=== PATIENT | male | born 1945 | race Caucasian/White ===

== ENCOUNTER 2016-09-19 11:12 | Emergency (ER) | payer OTHER ==
[2016-09-19 12:22] LABS: Basophils % (Auto) 0.9 % (0.0-1.8); Hemoglobin 12.6 gm/dl (11.8-15.2); Mean Corpuscular HGB Conc 33 % (32-34); Mean Corpuscular Hemoglobin 31 pg (28-32); Mean Corpuscular Volume 94 fl (84-94); Platelet Count 166 K/mm3 (140-440); Red Blood Count 4.02 M/mm3 (3.65-5.03); Red Cell Distribution Width 14.9 % (13.2-15.2); White Blood Count 7.4 K/mm3 (4.5-11.0)
[2016-09-19 12:36] LABS: Alanine Aminotransferase 44 units/L (7-56); Albumin 3.7 g/dL (3.9-5); Albumin/Globulin Ratio 0.9 %; Alkaline Phosphatase 278 units/L (35-129); Anion Gap 16 mmol/L; BUN/Creatinine Ratio 15.71; Bilirubin,Total 0.6 mg/dL (0.1-1.2); Blood Urea Nitrogen 11 mg/dL (9-20); Calcium 8.8 mg/dL (8.4-10.2); Carbon Dioxide 22 mmol/L (22-30); Chloride 101.8 mmol/L (98-107); Glucose 98 mg/dL (75-100); Lipase 20 units/L (13-60); Potassium 5.3 mmol/L (3.6-5.0); Sodium 134 mmol/L (137-145); Total Protein 7.8 g/dL (6.3-8.2)
--- NOTE | 2016-09-19 12:48 | Emergency Department Report ---
ED Abdominal Pain HPI - General Chief Complaint: Abdominal Pain Stated Complaint: FEVER/ABD PAIN Time Seen by Provider: 09/19/16 12:46 Source: patient Mode of arrival: Ambulatory Limitations: No Limitations - History of Present Illness Initial Comments: Patient presents to the emergency department for essentially a referral and another opinion. He said abdominal pain left upper quadrant of his abdomen for quite some time. Back in [place] he had a CT of his abdomen and an ultrasound performed. Had an MRI he states he states that none of these tests were positive for anything specific. He is status post cholecystectomy. He had the placement of the stent which was ultimately endoscopically removed. He cannot identify any gastric pathology on previous EGD. He's had this problem ongoing for really quite some time. He has a history of hypertension but states that he is not on an JOSEPH inhibitor. He states that he's had a long-term weight loss which continues. No one has found an etiology of his problem as of yet. He's had no recent acute pain and no signs of GI bleeding. He's had no recent fever or chills. MD Complaint: abdominal pain -: month(s), year(s) Location: [facility] Radiation: none Migration to: no migration Severity: moderate Quality: cramping Consistency: now resolved Improves With: nothing Worsens With: nothing Context: other Associated Symptoms: denies other symptoms - Related Data Previous Rx's Medication Instructions Recorded Last Taken Type Lansoprazole [Prevacid] 15 mg PO BID #60 cap 09/19/16 Unknown Rx traMADol [Ultram] 50 mg PO Q6HR PRN #10 tablet 09/19/16 Unknown Rx Allergies Allergy/AdvReac Type Severity Reaction Status Date / Time No Known Allergies Allergy Unverified 09/19/16 11:32 ED Review of Systems ROS: Stated complaint: FEVER/ABD PAIN Other details as noted in HPI Constitutional: denies: chills, fever Eyes: denies: eye pain, eye discharge, vision change ENT: denies: ear pain, throat pain Respiratory: denies: cough, shortness of breath, wheezing Cardiovascular: denies: chest pain, palpitations Endocrine: no symptoms reported Gastrointestinal: abdominal pain. denies: nausea, vomiting, diarrhea Genitourinary: denies: urgency, dysuria Musculoskeletal: denies: back pain, joint swelling, arthralgia Skin: denies: rash, lesions Neurological: denies: headache, weakness, paresthesias Psychiatric: denies: anxiety, depression Hematological/Lymphatic: denies: easy bleeding, easy bruising ED Past Medical Hx - Past Medical History Hx Hypertension: Yes - Surgical History Hx Cholecystectomy: Yes - Social History Smoking Status: Current Every Day Smoker Substance Use Type: None - Medications Home Medications: Home Medications Medication Instructions Recorded Confirmed Last Taken Type Lansoprazole [Prevacid] 15 mg PO BID #60 cap 09/19/16 Unknown Rx traMADol [Ultram] 50 mg PO Q6HR PRN #10 tablet 09/19/16 Unknown Rx ED Physical Exam - General Limitations: No Limitations General appearance: alert, in no apparent distress - Head Head exam: Present: atraumatic, normocephalic - Eye Eye exam: Present: normal appearance. Absent: scleral icterus - ENT ENT exam: Present: mucous membranes moist - Neck Neck exam: Present: normal inspection - Respiratory Respiratory exam: Present: normal lung sounds bilaterally. Absent: respiratory distress - Cardiovascular Cardiovascular Exam: Present: regular rate, normal rhythm. Absent: systolic murmur, diastolic murmur, rubs, gallop - GI/Abdominal GI/Abdominal exam: Present: soft, normal bowel sounds. Absent: distended, tenderness, guarding, rebound, rigid - Rectal Rectal exam: Present: deferred - Extremities Exam Extremities exam: Present: normal inspection - Back Exam Back exam: Present: normal inspection - Neurological Exam Neurological exam: Present: alert, oriented X3, CN II-XII intact. Absent: motor sensory deficit - Psychiatric Psychiatric exam: Present: normal affect, normal mood - Skin Skin exam: Present: warm, dry, intact, normal color. Absent: rash ED Course Vital Signs 09/19/16 09/19/16 09/19/16 11:32 12:41 12:47 Temperature 97.7 F 97.5 F L Pulse Rate 58 L 53 L 60 Respiratory 20 12 16 Rate Blood Pressure 137/52 Blood Pressure 150/63 [Left] O2 Sat by Pulse 100 100 100 Oximetry 09/19/16 09/19/16 09/19/16 12:59 13:00 13:30 Temperature Pulse Rate 61 59 L Respiratory 18 13 Rate Blood Pressure 143/52 119/50 Blood Pressure 143/52 [Left] O2 Sat by Pulse 100 100 100 Oximetry 09/19/16 13:45 Temperature Pulse Rate 59 L Respiratory 18 Rate Blood Pressure Blood Pressure 119/50 [Left] O2 Sat by Pulse 100 Oximetry - Reevaluation(s) Reevaluation #1: Patient remains asymptomatic here. He is requesting a GI referral. I will be given. He will be given 15 g of Kayexalate. A specimen was not hemolyzed. He is instructed that his potassium level will need to be repeated. I will also refer him to a primary care provider. He'll be placed on lansoprazole and given Ultram for his intermittent pain. 09/19/16 15:16 ED Medical Decision Making - Lab Data Result diagrams: 09/19/16 12:00 09/19/16 12:00 Laboratory Results - last 24 hr 09/19/16 09/19/16 12:00 12:00 WBC 7.4 RBC 4.02 Hgb 12.6 Hct 38.0 MCV 94 MCH 31 MCHC 33 RDW 14.9 Plt Count 166 Lymph % (Auto) 31.1 [place] % (Auto) 6.2 Eos % (Auto) 6.0 H Baso % (Auto) 0.9 Lymph # 2.3 [place] # 0.5 Eos # 0.4 Baso # 0.1 Seg Neutrophils % 55.8 Seg Neutrophils # 4.1 Sodium 134 L Potassium 5.3 H Chloride 101.8 Carbon Dioxide 22 Anion Gap 16 BUN 11 Creatinine 0.7 L Estimated GFR > 60 BUN/Creatinine Ratio 15.71 Glucose 98 Calcium 8.8 Total Bilirubin 0.6 AST 51 H ALT 44 Alkaline Phosphatase 278 H Total Protein 7.8 Albumin 3.7 L Albumin/Globulin Ratio 0.9 Lipase 20 Critical care attestation.: If time is entered above; I have spent that time in minutes in the direct care of this critically ill patient, excluding procedure time. ED Disposition Clinical Impression: Weight loss, Hyperkalemia Abdominal pain Qualifiers: Abdominal location: left upper quadrant Qualified Code(s): R10.12 - Left upper quadrant pain Disposition: DISCHARGED TO HOME OR SELFCARE Is pt being admited?: No Does the pt Need Aspirin: No Condition: Stable Instructions: Abdominal Pain (ED), Hyperkalemia (ED) Additional Instructions: Review potassium level was somewhat elevated. This requires follow-up. You given a medication to lower your calcium which may cause diarrhea this evening. Follow-up with primary care provider and GI patient. She referrals. Given you something to reduce stomach acid as well as of the her pain as needed. Return any acute change or problem. Prescriptions: Lansoprazole [Prevacid] 15 mg PO BID #60 cap traMADol [Ultram] 50 mg PO Q6HR PRN #10 tablet PRN Reason: Pain Referrals: [facility] [Provider Group] - 3-5 Days JAMEL COX MD [Staff Physician] - 2-3 Days Time of Disposition: 15:18
[2016-09-19 13:12] LABS: Bilirubin,Urine NEG (Negative); Blood,Urine NEG (Negative); Ketones,Urine NEG (Negative); Leukocyte Esterase,Urine NEG (Negative); Nitrite,Urine NEG (Negative); Protein,Urine <15 mg/dL mg/dL (Negative); Urobilinogen,Urine < 2.0 mg/dL (<2.0)
[2016-09-19] MEDS ORDERED: KIONEX PO ONE (15:23)
[2016-09-19 15:32] VITALS: BP 125/47
== END 2016-09-19 16:02 | disposition home or self-care (01) ==
LOC: ED 11:12
DX: E87.5 Hyperkalemia (principal); R63.4 Abnormal weight loss; R10.12 Left upper quadrant pain; I10 Essential (primary) hypertension; F17.200 Nicotine dependence, unspecified, uncomplicated
CPT/HCPCS: 36415; 80053; 81001; 83690; 85025; 99283